=== PATIENT | female | born 1940 | race Hispanic/Latino ===

== ENCOUNTER 2017-03-21 14:05 | Outpatient (CLI) | payer MEDICARE ==
--- NOTE | 2017-03-21 15:09 | XRay Report ---
LEFT TIBIA AND FIBULA TWO VIEWS: 03/21/17 14:05:00 CLINICAL: Leg pain. FINDINGS: No fracture or dislocation. Mild osteopenia. No bone lesion. The joint spaces are normal. Normal soft tissues.No soft tissue air or foreign body. IMPRESSION: Mild osteopenia but otherwise normal.
== END 2017-03-21 14:06 | disposition home or self-care (01) ==
LOC: SPVIMAG 14:05
PROVIDERS: ATTEND Internal Medicine
DX: M85.88 Other specified disorders of bone density and structure, other site (principal)

== ENCOUNTER 2017-06-20 12:18 | Outpatient (CLI) | payer MEDICARE ==
--- NOTE | 2017-06-20 14:33 | XRay Report ---
CHEST 2 VIEWS INDICATION: Left flank pain. COMPARISON: 04/06/2015 FINDINGS: PA and lateral chest radiographs demonstrate better inspiration with normal mediastinal and hilar contours. Top normal heart size. Clear lungs. Demineralized bones with few degenerative changes, including mild thoracic levoscoliosis. CONCLUSION: No acute disease, as described. Thank you for the opportunity to participate in this patient's care.
--- NOTE | 2017-06-20 15:43 | XRay Report ---
CHEST WITH LEFT RIB DETAIL 2 VIEWS: 06/20/17 12:18:00 CLINICAL: Left flank pain. FINDINGS: No rib fracture or rib lesion.The lungs are normally expanded and clear. No pneumothorax. Normal heart and pulmonary vasculature the lungs are clear. Normal soft tissues. IMPRESSION: Normal with no rib fracture identified.
== END 2017-06-20 12:19 | disposition home or self-care (01) ==
LOC: SPVIMAG 12:18
PROVIDERS: ATTEND Internal Medicine
DX: R10.9 Unspecified abdominal pain (principal); M47.894 Other spondylosis, thoracic region; M41.84 Other forms of scoliosis, thoracic region; I10 Essential (primary) hypertension; J18.9 Pneumonia, unspecified organism; E78.5 Hyperlipidemia, unspecified; I48.91 Unspecified atrial fibrillation; Z87.891 Personal history of nicotine dependence
CPT/HCPCS: 71020

== ENCOUNTER 2017-09-15 09:08 | Outpatient (CLI) | payer MEDICARE ==
--- NOTE | 2017-09-15 16:11 | Cat Scan Report ---
CT abdomen and pelvis without contrast: Left lower quadrant pain. Transverse images are obtained from lower chest to the ischium with coronal and sagittal 2-D reformatted images. A small calcification is noted in the lower left lung and there is a calcified lymph node in the mediastinum. There is a question of a tiny calculus in the gallbladder. The right adrenal gland is slightly thick but no definable mass. There is a 6.2 cm sharply circumscribed echolucent mass in the superior pole of the left kidney. Mild dilatation of both renal pelves are noted. The partially opacified small bowel is unremarkable. There is fecal matter through out the colon and the rectum is distended with feces but not the more proximal colon. There is diverticulosis of the descending and sigmoid colon but no evidence of inflammation. The appendix is questionably identified and if so is not suspicious. There is no pelvic mass but the reproductive organs are still present. There is a grade 1 L5 spondylolisthesis with bilateral degenerative and apophyseal joints. Impression: 1. Questionable tiny gallbladder calculus. 2. Prominent left renal cyst. 3. Distal colonic diverticulosis. 4. Rectal impaction. 5. L5 subluxation.
== END 2017-09-15 09:09 | disposition home or self-care (01) ==
LOC: SPVIMAG 09:08
PROVIDERS: ATTEND Internal Medicine
DX: N28.1 Cyst of kidney, acquired (principal); K57.30 Diverticulosis of large intestine without perforation or abscess without bleeding; J98.4 Other disorders of lung; K56.49 Other impaction of intestine; M43.16 Spondylolisthesis, lumbar region
CPT/HCPCS: 74176

== ENCOUNTER 2017-10-06 11:08 | Outpatient (CLI) | payer MEDICARE ==
--- NOTE | 2017-10-06 12:34 | XRay Report ---
THORACIC SPINE THREE VIEWS: 10/06/17 11:08:00 CLINICAL: Pain. FINDINGS: Normal vertebral body alignment. Exaggerated thoracic kyphosis but no spine fracture identified. Moderate degenerative change with small anterior osteophytes and endplate sclerosis at multiple levels. The disc spaces are preserved. No fracture or subluxation. No bone lesion. An oval calcified density overlies the T11 vertebral body and correlates with a calcified right para-aortic lymph node on a 09/15/17 CT Abdomen. IMPRESSION: Moderate degenerative change.
== END 2017-10-06 11:09 | disposition home or self-care (01) ==
LOC: SPVIMAG 11:08
PROVIDERS: ATTEND Internal Medicine
DX: M47.894 Other spondylosis, thoracic region (principal); M40.294 Other kyphosis, thoracic region; R10.9 Unspecified abdominal pain
CPT/HCPCS: 72072

== ENCOUNTER 2018-11-30 08:59 | Outpatient (CLI) | payer MEDICARE ==
[2018-11-30 09:43] LABS: Blood Urea Nitrogen 8 mg/dL (7-17)
--- NOTE | 2018-11-30 14:19 | Cat Scan Report ---
FINAL REPORT EXAM: CT ABDOMEN PELVIS W CON HISTORY: LEFT UPPER QUADRANT ABDOMINAL SWELLING MASS AND LUMP COMPARISON: None. TECHNIQUE: Multiple contiguous axial images were obtained from the lung bases to the pubic symphysis after administration of IV contrast. Reformatted sagittal and coronal images were are available for review. FINDINGS: Lung bases: Mild bronchial wall thickening of the lung bases. Visualized heart and mediastinum: Normal. Liver: Nodular surface of the liver suggestive of cirrhosis. No focal internal lesion. Spleen: Normal. Pancreas: Mild dilatation of the pancreatic duct, which measures up to 3 millimeters. The pancreatic parenchyma is normal. Gallbladder and Biliary Tree: No calcified gallstones. No biliary ductal dilatation. Adrenal glands: Normal. Kidneys: Symmetric enhancement to both kidneys. Simple appearing 6 centimeter cyst in the superior po le of the left kidney. No hydronephrosis. Bladder: Normal. Pelvic organs: The uterus is surgically absent. Bowel: No evidence of obstruction. No focal wall thickening. There is a large amount of stool within the colon, with more solid appearing stool that distends the rectum. Peritoneum: No significant mesenteric adenopathy. No free air or free fluid. Vasculature: Abdominal aorta is normal in caliber without evidence of aneurysm. Scattered atheroscler otic calcifications. Normal appearance of the portal venous system and the inferior vena cava. Bones and soft tissues: No suspicious osseous lesions. No acute fracture or dislocation. IMPRESSION: 1. Mild bronchial wall thickening at the bilateral lung bases, that may represent bronchitis. 2. Nodular liver surface, suggestive of cirrhosis. Recommend clinical correlation. 3. Mild dilatation of the pancreatic duct measuring up to 3 millimeters. No obvious stone or intralum inal mass. 4. Large amount of stool within the colon concerning for constipation. More solid appearing stool immanuel t distends the rectum concerning for fecal impaction. 5. 6 centimeters simple appearing cyst in the superior pole of the left kidney.
== END 2018-11-30 09:00 | disposition home or self-care (01) ==
LOC: CT 08:59
PROVIDERS: ATTEND Internal Medicine
DX: N28.1 Cyst of kidney, acquired (principal); I70.0 Atherosclerosis of aorta; E78.5 Hyperlipidemia, unspecified; I10 Essential (primary) hypertension; M19.90 Unspecified osteoarthritis, unspecified site; Z87.891 Personal history of nicotine dependence; Z90.89 Acquired absence of other organs
CPT/HCPCS: 36415; 74177; 82565; 84520; Q9967

== ENCOUNTER 2020-01-11 15:24 | Outpatient (CLI) | payer MEDICARE ==
--- NOTE | 2020-01-11 16:29 | XRay Report ---
Skull series-4 views INDICATION: HEAD INJURY, INTIAL ENCOUNTER [id number]. COMPARISON: CT head from 01/08/2016 IMPRESSION: Mild opacification of the left maxillary sinus suggesting sinus disease. Otherwise clear sinuses and mastoid air cells. No acute osseous abnormality identified. Signer Name: Miquel Babb MD Signed: 01/11/2020 4:25 PM Workstation Name: [id number]
== END 2020-01-11 15:25 | disposition home or self-care (01) ==
LOC: SPVWC 15:24
PROVIDERS: ATTEND Internal Medicine
DX: S09.90XA Unspecified injury of head, initial encounter (principal); X58.XXXA Exposure to other specified factors, initial encounter; Y93.89 Activity, other specified; Y92.89 Other specified places as the place of occurrence of the external cause; Y99.8 Other external cause status
CPT/HCPCS: 70260

== ENCOUNTER 2020-05-04 11:59 | Outpatient (CLI) | payer MEDICARE ==
--- NOTE | 2020-05-04 14:58 | Mammography Report ---
DIGITAL DIAGNOSTIC MAMMOGRAM WITH CAD, 05/04/2020 INDICATION: LEFT BREAST PAIN TECHNIQUE: Digital bilateral mammographic imaging was performed. This examination was interpreted with the benefit of Computer-aided Detection analysis. COMPARISON: 04/26/2013 FINDINGS: Breast Density: There are scattered areas of fibroglandular density. There is no evidence of dominant mass, suspicious calcifications or architectural distortion in eithe r breast. Arzate, please note patient's clinical condition markedly limited the quality of the mammogr aphic examination/exam. Patient has had a stroke and is confined to wheelchair and required physical assistance from the technologist in order to complete the exam. Given this limitation, there was no g ross mammographic abnormality to account for the patient's complaint of left breast pain. IMPRESSION: No obvious site of malignancy within either breast. Clinical condition limited full mammo graphic evaluation. Follow up recommendation: Clinical correlation is recommended. If additional imaging needs to be perf ormed, a left breast ultrasound can be ordered. BI-RADS Category 2: Benign. A "normal" or negative report should not discourage follow up or biopsy of a clinically significant f inding. A written summary of these findings will be mailed to the patient. The patient will be entered into a mammography reporting system which will generate a reminder letter for the patient's next appointmen t at the appropriate interval. According to the [employer], yearly mammograms are recommended starting at age 40 and continuing as long as a woman is in good health. Breast MRI is recommended for women with an rachell roximately 20-25% or greater lifetime risk of breast cancer, including women with a strong family his tory of breast or ovarian cancer and women who have been treated for Hodgkin's disease. Signer Name: Wanda Aquino MD Signed: 05/04/2020 2:53 PM Workstation Name: [id number]
== END 2020-05-04 12:00 | disposition home or self-care (01) ==
LOC: SPVWC 11:59
PROVIDERS: ATTEND Internal Medicine
DX: N64.4 Mastodynia (principal)
CPT/HCPCS: 77066